=== PATIENT | male | born 1955 | race Caucasian/White ===

== ENCOUNTER 2018-09-11 07:43 | Day surgery (SDC) | payer MEDICARE ==
[~2018-09-11] VITALS: Ht 182.9 cm; Wt 109.1 kg
--- NOTE | ~2018-09-11 | OP ---
PATIENT NAME: IVÁN QURESHI MEDICAL RECORD: [id number] :57 [facility] DATE: SURGEON: ALEM TALAVERA DO DATE OF OPERATION: 09/11/2018 PROCEDURE: EGD with balloon dilation and biopsies. INDICATIONS FOR PROCEDURE: Epigastric pain, dysphagia, nausea, heartburn. SCOPE: [employer]us video gastroscope. MEDICATIONS: Propofol 320 mg IV per anesthesia. ESTIMATED BLOOD LOSS: Minimal. COMPLICATIONS: None. FINDINGS: Informed consent was given. The patient was made comfortable with the above medication. After reaching an adequate level of sedation by slow IV push, the patient was placed on his left side. The endoscope was advanced under direct visualization through the mouth to the second portion of the duodenum with ease. The upper and middle thirds of the esophagus appeared normal. In the distal third and at the GE junction, there was evidence of moderate to severe reflux with an LA class C reflux-induced esophagitis pattern. There were a few ulcerations associated with this reflux. There was also some stricturing of the GE junction, felt to be related to reflux. Multiple cold forceps biopsies were taken from the GE junction and strictured segment. A 16-18 mm CRE dilating balloon was placed through the working channel of the endoscope and used to dilate the stricture up to 18 mm maximum diameter successfully. The endoscope was then advanced beyond the GE junction into the stomach and retroflexed to view the cardia, where a small sliding hiatal hernia was present. Throughout the fundus, stomach body, antrum, and prepyloric regions, there was scattered, patchy, erythema and granularity consistent with possible gastritis. Random cold forceps biopsies were taken to submit for histopathology and to rule out the presence of H. pylori. The endoscope was advanced beyond the pylorus into the duodenum where the bulb, first portion, and second portion of the duodenum appeared normal. The endoscope was then withdrawn from the patient. The patient tolerated the procedure well and there were no complications. IMPRESSION: 1. LA class C, reflux-induced esophagitis. 2. Esophageal stricture, felt to be related to reflux. The stricture was located at the GE junction and was dilated to 18 mm using a CRE balloon. 3. Small sliding hiatal hernia. 4. Patchy gastritis. PLAN AND RECOMMENDATIONS: 1. Discharge home when recovery parameters are met. 2. Follow up biopsy specimen results. 3. GERD diet and reflux precautions. 4. Continue current medications including pantoprazole 40 mg daily and ranitidine 300 mg daily. 5. We will treat for H. pylori if biopsies indicate presence of the bacteria. 6. Consider referral to [facility] for consideration of EUS with celiac plexus block for chronic pancreatitis and continued abdominal pain. OPERATIVE REPORT [id number] IVÁN QURESHI 7. We will increase Creon to 3 capsules p.o. t.i.d. with meals and 2 capsules with snacks due to continued presence of malabsorptive stools. 8. Can also consider a Chaparro study while on medications to evaluate for continued severe reflux. If this were a positive test, consideration will be given to referral for fundoplication. TRANSINT:[id number] Voice Confirmation ID: [id number] DOCUMENT ID: [id number] ALEM TALAVERA DO at 0800 CC: [id number] DICTATION DATE: 09/11/18919 HARDNESS INSPECTOR: 09/11/18 1220 [facility] 09/11/18 [id number] [place] [address]
[~2018-09-11 07:43] MED LIST: APAP325 MG PO; BAYER CHEWABLE81 MG PO; CREON (PANCRELI1 CAP PO; FLAGYL 500500 MG/100 IV; HUMALOG 30100 UNITS/ SC; HUMULIN R100 U/ML SC; K-TAB10 MEQ PO; LANTUS SOL100 UNIT/1 SQ; LEVAQUIN 5500 MG/100 IV; LIPITOR10 MG PO; METOPROLOL TART50 MG PO; MIRALAX17 GM PO; NARCAN0.4 MG/ML IV; NEURONTIN 300300 MG PO; ONDANSETRON4 MG/2 M3 IV; PROTONIX40 MG PO; SODIUM CL 0.91000 ML IV; STOOL SOFTENER240 MG PO; ZESTORETIC 20-1 EACH PO
[2018-09-11 08:00] LABS: BASOPHILS 0.4 % (0-2); EOSINOPHILS 1.8 % (0-7); HEMATOCRIT 46.7 % (42.0-54.0); HEMOGLOBIN 15.6 g/dL (13.5-17.5); IMMATURE GRANULOCYTES 0.2 % (0-5); LYMPHOCYTES 26.7 % (15-50); MCH 28.9 pg (26.0-34.0); MCHC 33.4 g/dL (31.0-37.0); MCV 86.6 fL (80.0-100.0); MEAN PLATELET VOLUME 11.3 fL (7.4-10.4); MONOCYTES 6.7 % (2-11); NEUTROPHILS 64.2 % (40-80); RBC 5.39 10x6/uL (4.20-6.10); RDW 14.1 % (11.5-14.5); WBC 4.5 10x3/uL (4.8-10.8)
[2018-09-11 08:06] LABS: PLATELET COUNT 114 10x3/uL (130-400)
[2018-09-11 08:11] LABS: CALC OSMOLALITY 282 mosm/kg (275-300); CARBON DIOXIDE 29.5 mmol/L (21.0-32.0); CHLORIDE - SERUM 104 mmol/L (98-107); GLUCOSE 97 mg/dL (74-106); POTASSIUM - SERUM 3.4 mmol/L (3.5-5.1); SODIUM 141 mmol/L (136-145); UREA NITROGEN 18 mg/dL (7-18); eGFR NON AFRICAN AMERICAN 81 mL/min (90-120)
[2018-09-11] MEDS ORDERED: BASAGLAR K100 UNIT/1 (08:13)
[2018-09-11] MEDS ORDERED: NEURONTIN 300300 MG PO (08:16)
[2018-09-11] MEDS ORDERED: ACTIGALL 300 M300 MG PO (08:16)
[2018-09-11] MEDS ORDERED: PRINZIDE 20/12.1 TA1 PO (08:17)
[2018-09-11] MEDS ORDERED: GLUCOPHAGE500 MG PO (08:17)
[2018-09-11] MEDS ORDERED: CELEXA10 MG PO (08:19)
[2018-09-11] MEDS ORDERED: FARXIGA10 MG PO (08:19)
[2018-09-11] MEDS ORDERED: NORVASC5 MG PO (08:19)
[2018-09-11] MEDS ORDERED: LIPITOR20 MG (08:20)
[2018-09-11] MEDS ORDERED: ZOFRAN4 MG (08:20)
[2018-09-11] MEDS ORDERED: LYRICA75 MG PO (08:21)
[2018-09-11] MEDS ORDERED: NITROQUICK0.4 MG SL (08:21)
[2018-09-11 08:36] VITALS: BP 135/93; Ht 182.9 cm; Wt 109.1 kg
== END 2018-09-11 10:38 | disposition home or self-care (01) ==
LOC: D.OPS 07:43
PROVIDERS: Anesthesiology
DX: K21.0 Gastro-esophageal reflux disease with esophagitis (principal); K44.9 Diaphragmatic hernia without obstruction or gangrene; K22.2 Esophageal obstruction; K29.50 Unspecified chronic gastritis without bleeding; Z01.812 Encounter for preprocedural laboratory examination

== ENCOUNTER 2018-09-18 06:27 | Day surgery (SDC) | payer MEDICARE ==
[~2018-09-18] VITALS: Ht 182.9 cm; Wt 110.5 kg
--- NOTE | ~2018-09-18 | OP ---
PATIENT NAME: IVÁN QURESHI MEDICAL RECORD: [id number] :57 LOCATION:D[facility] ADMISSION DATE: SURGEON: ALEM TALAVERA DO DATE OF OPERATION: 09/18/2018 PROCEDURE: Colonoscopy with polypectomy. INDICATION FOR PROCEDURE: Chronic constipation, diverticulosis, and hematochezia. SCOPE: [employer] video pediatric colonoscope. MEDICATIONS: Propofol 1000 mg IV per anesthesia. WITHDRAWAL TIME: 19 minutes. ESTIMATED BLOOD LOSS: Minimal. COMPLICATIONS: None. FINDINGS: Informed consent was given. The patient was made comfortable with the above medication. After reaching an adequate level of sedation by slow IV push, the patient was placed on his left side. Digital rectal examination was performed and was normal. The endoscope was then advanced under direct visualization through the rectum to the cecum, confirmed by the presence of the appendiceal orifice and the ileocecal valve. The endoscope was slowly withdrawn and the mucosa was carefully examined. The prep quality was fair. There were 2 polyps visualized on today's examination. One was located in the transverse colon and the other was in the descending colon. They were both benign appearing and sessile. They ranged in size from 3-5 mm in diameter. They were both removed using hot forceps. There was evidence of moderate diverticulosis of the sigmoid colon without evidence of diverticulitis. Retroflexion was performed in the rectum with visualization of grade I internal hemorrhoids without active bleeding. The endoscope was withdrawn from the patient. The patient tolerated the procedure well. There were no complications. IMPRESSION: 1. Two polyps as described above, removed using hot forceps. 2. Moderate diverticulosis of the sigmoid colon. 3. Internal hemorrhoids without bleeding. PLAN AND RECOMMENDATIONS: 1. Discharge home when recovery parameters are met. 2. Followup biopsy specimen results. 3. High-fiber diet. 4. Continue current medications. 5. Recall colonoscopy in 2-3 years for surveillance of personal history of polyps. TRANSINT:[id number] Voice Confirmation ID: [id number] DOCUMENT ID: [id number] OPERATIVE REPORT [id number] IVÁN QURESHI ALEM TALAVERA DO at 0835 CC: [id number] DICTATION DATE: 09/18/18 0952 SHORTS SIFTER: 09/18/18 1122 [facility] 09/18/18 [facility] [address] [place] [address]
[~2018-09-18 06:27] MED LIST changes: +ACTIGALL 300 M300 MG PO; +BASAGLAR K100 UNIT/1; +CELEXA10 MG PO; +FARXIGA10 MG PO; +GLUCOPHAGE500 MG PO; +LIPITOR20 MG; +LYRICA75 MG PO; +NITROQUICK0.4 MG SL; +NORVASC5 MG PO; +PRINZIDE 20/12.1 TA1 PO; +ZOFRAN4 MG
[2018-09-18 06:55] LABS: HEMATOCRIT 46.8 % (42.0-54.0); HEMOGLOBIN 15.8 g/dL (13.5-17.5); MCH 29.2 pg (26.0-34.0); MCHC 33.8 g/dL (31.0-37.0); MCV 86.3 fL (80.0-100.0); MEAN PLATELET VOLUME 11.6 fL (7.4-10.4); RBC 5.42 10x6/uL (4.20-6.10); RDW 14.2 % (11.5-14.5)
[2018-09-18 07:08] LABS: APTT 24.4 SECONDS (22.8-39.4); CALC OSMOLALITY 288 mosm/kg (275-300); CALCIUM 8.8 mg/dL (8.5-10.1); CARBON DIOXIDE 28.1 mmol/L (21.0-32.0); CHLORIDE - SERUM 101 mmol/L (98-107); INR 1.02 (0.85-1.17); POTASSIUM - SERUM 3.8 mmol/L (3.5-5.1); PROTIME 12.9 SECONDS (11.6-15.0); SODIUM 142 mmol/L (136-145); UREA NITROGEN 19 mg/dL (7-18); eGFR NON AFRICAN AMERICAN 81 mL/min (90-120)
[2018-09-18 07:09] LABS: GLUCOSE 175 mg/dL (74-106)
[2018-09-18 08:48] VITALS: BP 153/95; Ht 182.9 cm; Wt 110.5 kg
== END 2018-09-18 10:45 | disposition home or self-care (01) ==
LOC: D.OPS 06:27
PROVIDERS: Anesthesiology
DX: K57.30 Diverticulosis of large intestine without perforation or abscess without bleeding (principal); D12.4 Benign neoplasm of descending colon; D12.3 Benign neoplasm of transverse colon; K64.8 Other hemorrhoids; Z01.812 Encounter for preprocedural laboratory examination

== ENCOUNTER → 2019-12-13 08:42 | Outpatient (CLI) | payer MEDICARE, OTHER ==
[2018-09-18 08:48] VITALS: BMI 33.0
== END | disposition home or self-care (01) ==
LOC: D.LAB 08:00 → D.CT 09:00
PROVIDERS: ATTEND Internal Medicine Gastroenterology
DX: R10.13 Epigastric pain (principal)

== ENCOUNTER 2021-03-19 06:00 | Day surgery (SDC) | payer MEDICARE, OTHER ==
[~2021-03-19] VITALS: Ht 182.9 cm; Wt 111.4 kg
--- NOTE | ~2021-03-19 | OP ---
PATIENT NAME: IVÁN QURESHI MEDICAL RECORD: [id number] :57 LOCATION:[facility] ADMISSION DATE: SURGEON: EMELY FERRARA MD DATE OF OPERATION: 03/19/2021 PROCEDURE: Upper endoscopy. PREOPERATIVE DIAGNOSES: Mr. Qureshi is a pleasant 65-year-old male who has epigastric pain as well as dysphagia. He is currently on a proton pump inhibitor. MEDICATIONS GIVEN: Propofol 250 mg. Upper endoscopy was performed. The patient was made comfortable in the left lateral position. The endoscope was advanced through the mouth and advanced to the second part of the duodenum. The proximal and mid esophagus were normal. In the distal esophagus were exudates consistent with esophagitis. Distal esophageal biopsies were taken. There was also a distal esophageal stricture. This was dilated with an 18, 19, 20 through the scope balloon. In the gastric body was erythema consistent with gastritis. Random gastric biopsies were taken. The entire examined duodenum was normal. Small bowel biopsies were taken given the patient's history of abdominal pain. The patient tolerated the procedure well. There were no immediate complications. FINAL DIAGNOSES: Distal esophagitis, distal esophageal stricture dilated as noted above. Gastritis. Normal duodenum. PLAN: Check histology results. Advance diet. Avoid NSAIDs. This patient is already on a proton pump inhibitor. I will suggest adding an H2 talon and see if this improves his symptoms and have him follow up in the GI outpatient clinic. TRANSINT:[id number] Voice Confirmation ID: [id number] DOCUMENT ID: [id number] EMELY FERRARA MD CC: [id number] DICTATION DATE: 03/19/21828 GENERAL MANAGER FARM: 03/19/21839 [id number] [place] [id number]
[2021-03-19] MEDS ORDERED: TRESIBA FL100 UNIT/1 SC (07:11)
[2021-03-19] MEDS ORDERED: NOVOLOG100 UNIT/1 SC (07:13)
[2021-03-19] MEDS ORDERED: NORTRIPTYLINE H50 MG PO (07:16)
[2021-03-19] MEDS ORDERED: PHENERGAN25 M1 PO (07:17)
[2021-03-19] MEDS ORDERED: ANORO ELLIPTA1 EACH INH (07:18)
[2021-03-19] MEDS ORDERED: VENTOLIN HFA [SP8 GM INH (07:18)
[2021-03-19 07:19] VITALS: Ht 182.9 cm; Wt 111.4 kg
[2021-03-19 07:23] LABS: BASOPHILS 0.6 % (0-2); EOSINOPHILS 0.9 % (0-7); HEMOGLOBIN 14.2 g/dL (13.5-17.5); LYMPHOCYTES 16.6 % (15-50); MCH 27.6 pg (26.0-34.0); MCHC 33.1 g/dL (31.0-37.0); MCV 83.4 fL (80.0-100.0); MEAN PLATELET VOLUME 9.2 fL (7.4-10.4); MONOCYTES 6.8 % (2-11); NEUTROPHILS 75.1 % (40-80); PLATELET COUNT 118 10x3/uL (130-400); RBC 5.15 10x6/uL (4.20-6.10); RDW 14.6 % (11.5-14.5); WBC 5.6 10x3/uL (4.8-10.8)
[2021-03-19 07:39] LABS: CALC OSMOLALITY 281 mosm/kg (275-300); CALCIUM 8.8 mg/dL (8.5-10.1); CHLORIDE - SERUM 104 mmol/L (98-107); CREATININE - SERUM 0.9 mg/dL (0.6-1.3); POTASSIUM - SERUM 3.3 mmol/L (3.5-5.1); SODIUM 141 mmol/L (136-145); UREA NITROGEN 16 mg/dL (7-18); eGFR NON AFRICAN AMERICAN > 90 mL/min (90-120)
[2021-03-19 07:40] LABS: GLUCOSE 90 mg/dL (74-106)
--- NOTE | 2021-03-19 08:40 | NUR ---
IN ROOM 0910 DC TEACHING COMPLETE TO PT AND , VERBALIZED UNDERSTANDING 0920 PIV REMEOVED WITH CATHETER INTACT HELPING PT TO GET DRESSED 0931 PT DC'D VIA WC ACCOMPANIED BY REAL, TO POV WITH ALL BELONGINGS AND DC PACKET, DRIVING
== END 2021-03-19 09:31 | disposition home or self-care (01) ==
LOC: D.OPS 06:00
PROVIDERS: Anesthesiology; ATTEND Internal Medicine Gastroenterology
DX: R10.13 Epigastric pain (principal); R13.10 Dysphagia, unspecified; K22.2 Esophageal obstruction; K20.90 Esophagitis, unspecified without bleeding; K21.9 Gastro-esophageal reflux disease without esophagitis; K57.30 Diverticulosis of large intestine without perforation or abscess without bleeding; K59.09 Other constipation